=== PATIENT | male | born 1955 | race Caucasian/White ===

== ENCOUNTER → 2018-06-10 11:28 | Outpatient (REF) | payer BC, SELFPAY ==
[2018-06-10 12:37] LABS: Hemoglobin A1C 6.2 % (4.5-6.2)
[2018-06-10 15:55] LABS: ALT 36 U/L (12-78); AST 22 U/L (15-37); HDL Cholesterol 36 mg/dL (40-60); LDL CHOLESTEROL 76 mg/dL (<100)
[2018-06-10 16:09] LABS: Creatine Kinase 144 U/L (39-308)
== END ==
LOC: NCHCN 11:28
PROVIDERS: PCP Nurse Practitioner Family; Visit Provider Nurse Practitioner Family
DX: M25.562 Pain in left knee (principal); E78.5 Hyperlipidemia, unspecified; I10 Essential (primary) hypertension
CPT/HCPCS: 82550; 83721; 83036; 83718; 84450; 84460

== ENCOUNTER 2018-07-18 09:00 | Outpatient (CLI) | payer BC, SELFPAY ==
--- NOTE | 2018-07-18 09:16 | DI.RAD_ITS ---
SYMPTOMS/DIAGNOSIS: LT KNEE PAIN, PRE TKA LEG LEG EXAMINATION: In the right knee there is moderate joint space narrowing and mild periarticular spurring in the medial femoral tibial joint space. In the left knee there is moderately severe joint space narrowing and moderate periarticular spurring in the medial femoral tibial joint. The hips and ankles appear well maintained. The right lower extremity measures 87.2 cm. The left lower extremity measures 86.1 cm. IMPRESSION: Bilateral osteoarthritis of the knees.
== END 2018-07-18 09:20 ==
PROVIDERS: PCP Nurse Practitioner Family; Visit Provider Student in an Organized Health Care Education/Training Program
DX: M25.562 Pain in left knee (principal); M17.0 Bilateral primary osteoarthritis of knee
CPT/HCPCS: 77073

== ENCOUNTER 2018-08-31 13:55 | Outpatient (CLI) | payer BC, SELFPAY ==
--- NOTE | 2018-08-31 14:30 | W.PREOPHP ---
Date of service: 08/31/18 Assessment and Plan (1) Left knee DJD: Current visit: No Status: Chronic Pending cardiac clearance, Efrain will proceed with a left total knee replacement. Because of dyspnea on exertion, associated with angina, Efrain is referred back to his garage door technician on 09/02/2018 for cardiac clearance of surgery on 09/06/2018. Details of surgery were discussed with patient, as well as risks, and pertinent anatomy. All questions were answered. History of Present Illness Chief Complaint: LEFT knee pain Narrative: Efrain is a 63-year-old male complaining of left knee pain. He states that this knee pain has been bothering him for 10 or 15 years. He has been pushing through this knee pain for quite some time, however now it is starting in the way of his daily life. He states that while he is working he is okay at the beginning of the day, however after his first break, getting up from seated position and the rest of the day he has space significant left knee pain. Most of his pain is start up pain, however if he is on his feet for a long rate of time he has been significant pain at the end of the day. He also has significant pain going down stairs. He has had x-rays done which show complete loss of joint space in the medial compartment. There is also bone spurring throughout the medial compartment and patellofemoral compartment. He does have a valgus deformity on x-ray. He has had an injection, which did help his knee pain however it was short-lived relief. At this point he is looking for more permanent treatment option for his left knee pain, and Dr. Hernandez does suggest a left total knee replacement. Efrain is anxious to proceed with a left total knee replacement. Pertinent Surgical Information Efrain has an extensive cardiac history. Back in 2004, he had an VT which led to a stent placement. He was doing okay until about 2 years ago, we went in to have a hemicolectomy for colon cancer, he subsequently had another VT. After an attempted stent placement, he ended up having a triple bypass. Since then he continues to have some chest pain and shortness of breath if he overdoes it, however he states that if he rests when this happens the pain and shortness of breath goes away. He has been seeing a garage door technician, but has not seen him with the intention of having a total knee replacement. He does have a history of colon cancer, with hemicolectomy. Patient denies history of hypertension, CVA, asthma, COPD, renal or liver disorders, hepatitis, bleeding disorders, diabetes, immune or thyroid disorders. No complications from anesthesia. Review of Systems Constitutional Denies fever(s) ENT Denies dizziness and Denies sore throat Cardiovascular Reports chest pain with activity, Denies palpitations and Denies dyspnea Respiratory Denies dyspnea Gastrointestinal Denies abdominal pain, Denies melena, Denies hematochezia, Denies diarrhea, Denies nausea and Denies vomiting Genitourinary Denies hematuria and Denies dysuria Neurologic Denies dizziness Endocrine Denies palpitations PFSH Medical History Diabetes mellitus (Chronic) Sleep apnea with use of continuous positive airway pressure (CPAP) (Chronic) Colon cancer (Chronic) Myocardial infarction (Chronic) Umbilical hernia (Acute) Social History Smoking/Tobacco Use Status: Never alcohol intake: former substance use type: does not use Surgical History History of hemicolectomy (Chronic) History of coronary artery bypass graft x 3 (Chronic) History of heart artery stent (Chronic) History of colostomy reversal (Acute) Meds Home Medications Medication Instructions Recorded Confirmed Type ascorbic acid (vitamin C) [Vitamin 1,000 mg PO DAILY 06/22/14 08/31/18 History C] aspirin [Aspir-81] 81 mg PO DAILY 06/22/14 08/31/18 History mv,Ca,Fe,[id number]-caff [One 1 tab PO DAILY 06/22/14 08/31/18 History Daily Tablet] omeprazole magnesium [Prilosec Otc] 20 mg PO DAILY 06/22/14 08/31/18 History trazodone 100 mg PO HS 06/22/14 08/31/18 History acetaminophen [Acetaminophen Extra 1,000 mg PO Q4H PRN tab-cap 03/14/18 08/31/18 History Strength] atorvastatin 80 mg PO HS tab-cap 03/14/18 08/31/18 History cetirizine [Zyrtec] 10 mg PO PRN PRN 03/14/18 08/31/18 History fluticasone [Flonase Allergy 9.9 ml NS PRN PRN 03/14/18 08/31/18 History Relief] furosemide 20 mg PO DAILY tab-cap 03/14/18 08/31/18 History lisinopril 80 mg PO DAILY tab-cap 03/14/18 08/31/18 History metoprolol tartrate 50 mg PO TID tab 03/14/18 08/31/18 History nitroglycerin 0.4 mg SUBLINGUAL . DIRECTED PRN 03/14/18 08/31/18 History loperamide [Anti-Diarrhea] 2 mg PO DAILY 08/31/18 08/31/18 History psyllium husk [Metamucil] 1 tbsp PO HS 08/31/18 08/31/18 History Allergies Allergy/AdvReac Type Severity Reaction Status Date / Time salmon oil Allergy Severe anaphylaxis Uncoded 08/31/18 14:13 Exam HENMT Head: normocephalic and atraumatic General nose exam: no nasal discharge Throat: uvula midline and no uvular edema Other: soft palate rises symmetrically, no erythema Eyes Conjunctivae: conjunctivae normal Sclera: sclerae normal Pupils: PERRL Resp Effort & Inspection: normal respiratory effort Auscultation: clear to auscultation bilaterally and no wheezes Cardio Rate: regular rate Rhythm: regular rhythm Heart Sounds: S1 normal, S2 normal and no murmurs
--- NOTE | 2018-08-31 14:38 | HPE_ITS ---
Date of service: 08/31/18 Assessment and Plan (1) Left knee DJD: Current visit: No Status: Chronic Pending cardiac clearance, Efrain will proceed with a left total knee replacement. Because of dyspnea on exertion, associated with angina, Efrain is referred back to his import/export freight forwarder on 09/02/2018 for cardiac clearance of surgery on 09/06/2018. Details of surgery were discussed with patient, as well as risks, and pertinent anatomy. All questions were answered. History of Present Illness Chief Complaint: LEFT knee pain Narrative: Efrain is a 63-year-old male complaining of left knee pain. He states that this knee pain has been bothering him for 10 or 15 years. He has been pushing through this knee pain for quite some time, however now it is starting in the way of his daily life. He states that while he is working he is okay at the beginning of the day, however after his first break, getting up from seated position and the rest of the day he has space significant left knee pain. Most of his pain is start up pain, however if he is on his feet for a long rate of time he has been significant pain at the end of the day. He also has significant pain going down stairs. He has had x-rays done which show complete loss of joint space in the medial compartment. There is also bone spurring throughout the medial compartment and patellofemoral compartment. He does have a valgus deformity on x-ray. He has had an injection, which did help his knee pain however it was short-lived relief. At this point he is looking for more permanent treatment option for his left knee pain, and Dr. Hernandez does suggest a left total knee replacement. Efrain is anxious to proceed with a left total knee replacement. Pertinent Surgical Information Efrain has an extensive cardiac history. Back in 2004, he had an OH which led to a stent placement. He was doing okay until about 2 years ago, we went in to have a hemicolectomy for colon cancer, he subsequently had another OH. After an attempted stent placement, he ended up having a triple bypass. Since then he continues to have some chest pain and shortness of breath if he overdoes it , however he states that if he rests when this happens the pain and shortness of breath goes away. He has been seeing a import/export freight forwarder, but has not seen him with the intention of having a total knee replacement. He does have a history of colon cancer, with hemicolectomy. Patient denies history of hypertension, CVA, asthma, COPD, renal or liver disorders, hepatitis, bleeding disorders, diabetes, immune or thyroid disorders. No complications from anesthesia. Review of Systems Constitutional Denies fever(s) ENT Denies dizziness and Denies sore throat Cardiovascular Reports chest pain with activity, Denies palpitations and Denies dyspnea Respiratory Denies dyspnea Gastrointestinal Denies abdominal pain, Denies melena, Denies hematochezia, Denies diarrhea, Denies nausea and Denies vomiting Genitourinary Denies hematuria and Denies dysuria Neurologic Denies dizziness Endocrine Denies palpitations PFSH Medical History Diabetes mellitus (Chronic) Sleep apnea with use of continuous positive airway pressure (CPAP) (Chronic) Colon cancer (Chronic) Myocardial infarction (Chronic) Umbilical hernia (Acute) Social History Smoking/Tobacco Use Status: Never alcohol intake: former substance use type: does not use Surgical History History of hemicolectomy (Chronic) History of coronary artery bypass graft x 3 (Chronic) History of heart artery stent (Chronic) History of colostomy reversal (Acute) Meds Home Medications Medication Instructions Recorded Confirmed Type ascorbic acid (vitamin C) [Vitamin 1,000 mg PO DAILY 06/22/14 08/31/18 History C] aspirin [Aspir-81] 81 mg PO DAILY 06/22/14 08/31/18 History mv,Ca,Fe,[id number]-[id number]-caff [One 1 tab PO DAILY 06/22/14 08/31/18 History Daily Tablet] omeprazole magnesium [Prilosec Otc] 20 mg PO DAILY 06/22/14 08/31/18 History trazodone 100 mg PO HS 06/22/14 08/31/18 History acetaminophen [Acetaminophen Extra 1,000 mg PO Q4H PRN tab-cap 03/14/18 History Strength] atorvastatin 80 mg PO HS tab-cap 03/14/18 08/31/18 History cetirizine [Zyrtec] 10 mg PO PRN PRN 03/14/18 08/31/18 History fluticasone [Flonase Allergy 9.9 ml NS PRN PRN 03/14/18 08/31/18 History Relief] furosemide 20 mg PO DAILY tab-cap 03/14/18 08/31/18 History lisinopril 80 mg PO DAILY tab-cap 03/14/18 08/31/18 History metoprolol tartrate 50 mg PO TID tab 03/14/18 08/31/18 History nitroglycerin 0.4 mg SUBLINGUAL . DIRECTED PRN 03/14/18 08/31/18 History loperamide [Anti-Diarrhea] 2 mg PO DAILY 08/31/18 08/31/18 History psyllium husk [Metamucil] 1 tbsp PO HS 08/31/18 08/31/18 History Allergies Allergy/AdvReac Type Severity Reaction Status Date / Time salmon oil Allergy Severe anaphylaxis Uncoded 08/31/18 14:13 Exam HENMT Head: normocephalic and atraumatic General nose exam: no nasal discharge Throat: uvula midline and no uvular edema Other: soft palate rises symmetrically, no erythema Eyes Conjunctivae: conjunctivae normal Sclera: sclerae normal Pupils: PERRL Resp Effort & Inspection: normal respiratory effort Auscultation: clear to auscultation bilaterally and no wheezes Cardio Rate: regular rate Rhythm: regular rhythm Heart Sounds: S1 normal, S2 normal and no murmurs
[2018-08-31 16:27] LABS: HCT 38.9 % (40.0-50.0); HGB 13.2 g/dL (13.5-17.5); Mean Corp. HGB Concentration 33.9 g/dL (32.0-36.0); Mean Corpuscular Hemoglobin 29.1 pg (27.0-33.0); Mean Corpuscular Volume 85.7 fL (80-95); Mean Platelet Volume 10.1 fL (8.0-11.0); Platelet Count 212 x1000/uL (130-400); RBC 4.54 m/cumm (4.50-6.00); RBC Distribution Width 12.2 % (11.8-14.1); White Blood Cell Count 6.12 k/cumm (4.4-10.8)
[2018-08-31 16:56] LABS: Anion Gap 7.8 mmol/L (3-11); BUN 19 mg/dL (7-18); CO2 30.2 mmol/L (21.0-32.0); CREATININE 1.04 mg/dL (0.70-1.30); Calcium 8.1 mg/dL (8.5-10.1); Chloride 104 mmol/L (98-107); Glucose 123 mg/dL (70-100); Potassium 3.6 mmol/L (3.5-5.1); Sodium 142 mmol/L (136-145)
== END 2018-08-31 14:15 ==
PROVIDERS: PCP Nurse Practitioner Family; Visit Provider Student in an Organized Health Care Education/Training Program
DX: M25.562 Pain in left knee (principal); M17.12 Unilateral primary osteoarthritis, left knee; I25.10 Atherosclerotic heart disease of native coronary artery without angina pectoris; I10 Essential (primary) hypertension; Z01.818 Encounter for other preprocedural examination
CPT/HCPCS: 36415; 80048; 85027; NC; 83036; 93005; 93010

== ENCOUNTER 2018-09-06 06:00 | Inpatient (IN) | payer BC, SELFPAY ==
[2018-08-31 14:22] VITALS: BP 155/75; PULSE 50; RESP 17; TEMP 37.1; O2SAT 97
--- NOTE | 2018-08-31 15:27 | PDOC.CMPRO ---
- If Service Date Differs Date of service: 08/31/18 Time of Service: 15:27 Care Management Progress Note CM met with Efrain per request of day surgery. Efrain will have a TKA with Dr. Hernandez on 09/06/18. He resides in [place] with his , Renée, and her elderly father who suffers from 'dementia/Alzheimer's' per Renée. Efrain works for the [employer]. He is independent with his ADLs and transportation. Efrain will be needing a FWW at discharge and has elected to receive one through [employer]- (Renée does not want to use [employer]). Efrain has 13 steps up to his home. Renée has asked if she can stay overnight with Efrain during his recovery. CM advised that while this was not encouraged, it was likely that she could be accommodated. Per Renée, she has health issues and [place] is a long drive from [facility]. CM will offer support to Efrain, family, and care team when Efrain arrives on the MS floor.
--- NOTE | 2018-08-31 15:33 | CMPROGNOTE_ITS ---
- If Service Date Differs Date of service: 08/31/18 Time of Service: 15:27 Care Management Progress Note CM met with Efrain per request of day surgery. fErain will have a TKA with Dr. Hernandez on 09/06/18. He resides in [place] with his , Renée, and her elderly father who suffers from 'dementia/Alzheimer's' per Renée. Efrain works for the [employer] [place]. He is independent with his ADLs and transportation. Efrain will be needing a FWW at discharge and has elected to receive one through [employer]- (Renée does not want to use [employer]). Efrain has 13 steps up to his home. Renée has asked if she can stay overnight with Efrain during his recovery. CM advised that while this was not encouraged, it was likely that she could be accommodated. Per Renée, she has health issues and [place] is a long drive from [facility]. CM will offer support to Efrain, family, and care team when Efrain arrives on the MS floor.
[2018-09-06] VITALS (12 sets, daily range): BP systolic 117–163; BP diastolic 56–93; PULSE 50–72; RESP 14–92; TEMP 36–37.4; O2SAT 93–98
[2018-09-06] MEDS: Celecoxib 200 MG CAP 400 MG PO (06:48)
[2018-09-06] MEDS: Acetaminophen 500 MG TAB 1000 MG PO ×3 (06:49→19:36)
[2018-09-06] MEDS: oxyCODONE-CR 10 MG TABCR PO (06:49)
[2018-09-06] MEDS: Gabapentin 300 MG CAP PO ×2 (06:49→21:14)
[2018-09-06] MEDS: Lactated Ringers 1,000 ML 80 ML IV ×2 (07:06→12:22)
[2018-09-06] MEDS: Bupivacaine LIPOSOME/PF 133 MG/10 ML VIAL IJ ×2 (07:45→09:47)
[2018-09-06] MEDS: Bupivacaine 0.25% Pres-Free 10 ML VIAL (07:45)
[2018-09-06] MEDS: Lidocaine 2% Viscous 15 ML CUP 3 ML PO (09:00)
[2018-09-06] MEDS: Ketorolac 30 MG/ML VIAL (09:47)
[2018-09-06] MEDS: Bupivacaine 0.25% Pres-Free 30 ML VIAL (09:47)
--- NOTE | 2018-09-06 14:03 | PT.INIE ---
Date of service: 09/06/18 Time of Service: 14:03 PT Notes Inpatient Physical Therapy Evaluation Date: 09/06/18 Referring Doctor: Mk Hernandez PT Orders: PT CONSULT: s/p L TKA Precautions: WBAT L LE Patient Profile/Admitting Diagnosis: Pt is a 63yr old female s/p left total knee arthroplasty by Dr. Hernandez 09/06/18 PMHX: obesity, left knee degenerative joint disease, myocardial infarction, coronary artery bypass graft x3, stent placement, colon cancer, hemicolectomy with colostomy reversal, diabetes mellitus, sleep apnea uses CPAP, umbilical hernia Social History/Home Situation: Lives with in a house, 1 step to enter, 13 steps with railing to upstairs bedrooms. Baseline mobility independent gait with no device, independent with ADLS Equipment Owned/DME: crutches, will need FWW Subjective: Pt lying in bed watching TV with , alert and agreable to PT Consult. Objective: General Observation: IV L UE, cryocuff left knee, raya catheter, james wrap L LE Mental Status: A& O x3 Pain: no c/o pain Bed Mobility/Transfers: Supine-sit: HOB 35degrees, independent Sit-stand: SBA with FWW Stand-sit: SBA Sit-supine: HOB Flat, independent Gait: SBA with FWW 70ftx2, step through gait pattern with decreased stride and odell. Pt returned to bed once gait completed. Cryocuff applied post session Therex: Pt has issued pre-op TKA therex program, initiated ankle pumps, quad sets, glute sets x 20 reps, seated LAQ x 10 reps Balance: Static Sitting: normal Dynamic Sitting: normal Static Standing: fair Dynamic Standing: fair Special Tests: Mobility Limitations Standardized Measure [facility] AM-PAC 6 clicks Basic Mobility Inpatient Short Form: Raw Score: 18 Standardized Score: 43.63 CMS Score: 46.58% [facility] Modifier: CK Informed Consent/Education: Patient instructed in purpose of PT consult and plan of care. Assessment: Pt is a 63yr old female s/p left total knee arthroplasty by Dr. Hernandez 09/06/18 in setting of obesity, left knee degenerative joint disease, myocardial infarction, coronary artery bypass graft x3, stent placement.Patient presents with the following impairment level findings: decreased ROM L knee, decreased strength left quad, decreased strength with transfers and gait mobility requiring FWW for gait stability post operatively. Pt will require FWW for gait in home setting at discharge. Impairments are contributing to the following functional limitations: AMPAC score CMS Score: 46.58% Patient is assessed as a Low 39364 complexity based on the following: History: see above Examination: see above Presentation: stable Decision Making: AMPAC score CMS Score: 46.58% Goals: Goals X1 week 1. Supine-Sit : independent 2. Sit-Supine : independent 3. Sit-Stand : supervision 4. Stand-Sit : supervision 5. Bed-Chair : supervision with FWW 6. Chair-Bed : supervision with FWW 7. Gait : supervision 150ft WBAT L LE 8. Stairs SBA up/down 13 steps with railing, WBAT L LE 9. Independent with home exercise program Plan of Care/Treatment Plan: 1-2x/day, 7 days/week x 1 week. Plan of care has been reviewed with the STAVE BOLT EQUALIZER providing the service under Physical Therapy direction. Initiate Physical Therapy intervention for strengthening, bed mobility, transfers, gait, stairs, balance training, use of assistive device. DISCHARGE RECOMMENDATIONS: home, will need FWW TREATMENT CODE/TIME: 25 min IE 1402 G Codes in the area mobility of walking and moving around: current status [id number] CK; projected status GP [id number]. Discharge status (if discharging) GP [id number] CK based on AMPAC score CMS Score: 46.58% Karon Marinelli PT
--- NOTE | 2018-09-06 14:16 | IN_ITS ---
Date of service: 09/06/18 Time of Service: 14:03 PT Notes Inpatient Physical Therapy Evaluation Date: 09/06/18 Referring Doctor: Mk Hernandez PT Orders: PT CONSULT: s/p L TKA Precautions: WBAT L LE Patient Profile/Admitting Diagnosis: Pt is a 63yr old female s/p left total knee arthroplasty by Dr. Hernandez 09/06/18 PMHX: obesity, left knee degenerative joint disease, myocardial infarction, coronary artery bypass graft x3, stent placement, colon cancer, hemicolectomy with colostomy reversal, diabetes mellitus, sleep apnea uses CPAP, umbilical hernia Social History/Home Situation: Lives with in a house, 1 step to enter, 13 steps with railing to upstairs bedrooms. Baseline mobility independent gait with no device, independent with ADLS Equipment Owned/DME: crutches, will need FWW Subjective: Pt lying in bed watching TV with , alert and agreable to PT Consult. Objective: General Observation: IV L UE, cryocuff left knee, raya catheter, james wrap L LE Mental Status: A& O x3 Pain: no c/o pain Bed Mobility/Transfers: Supine-sit: HOB 35degrees, independent Sit-stand: SBA with FWW Stand-sit: SBA Sit-supine: HOB Flat, independent Gait: SBA with FWW 70ftx2, step through gait pattern with decreased stride and odell. Pt returned to bed once gait completed. Cryocuff applied post session Therex: Pt has issued pre-op TKA therex program, initiated ankle pumps, quad sets, glute sets x 20 reps, seated LAQ x 10 reps Balance: Static Sitting: normal Dynamic Sitting: normal Static Standing: fair Dynamic Standing: fair Special Tests: Mobility Limitations Standardized Measure [facility] AM-PAC 6 clicks Basic Mobility Inpatient Short Form: Raw Score: 18 Standardized Score: 43.63 CMS Score: 46.58% [facility] Modifier: CK Informed Consent/Education: Patient instructed in purpose of PT consult and plan of care. Assessment: Pt is a 63yr old female s/p left total knee arthroplasty by Dr. Hernandez 09/06/18 in setting of obesity, left knee degenerative joint disease, myocardial infarction, coronary artery bypass graft x3, stent placement.Patient presents with the following impairment level findings: decreased ROM L knee, decreased strength left quad, decreased strength with transfers and gait mobility requiring FWW for gait stability post operatively. Pt will require FWW for gait in home setting at discharge. Impairments are contributing to the following functional limitations: AMPAC score CMS Score: 46.58% Patient is assessed as a Low 94178 complexity based on the following: History: see above Examination: see above Presentation: stable Decision Making: AMPAC score CMS Score: 46.58% Goals: Goals X1 week 1. Supine-Sit : independent 2. Sit-Supine : independent 3. Sit-Stand : supervision 4. Stand-Sit : supervision 5. Bed-Chair : supervision with FWW 6. Chair-Bed : supervision with FWW 7. Gait : supervision 150ft WBAT L LE 8. Stairs SBA up/down 13 steps with railing, WBAT L LE 9. Independent with home exercise program Plan of Care/Treatment Plan: 1-2x/day, 7 days/week x 1 week. Plan of care has been reviewed with the PILOT BOAT CAPTAIN providing the service under Physical Therapy direction. Initiate Physical Therapy intervention for strengthening, bed mobility, transfers, gait, stairs, balance training, use of assistive device. DISCHARGE RECOMMENDATIONS: home, will need FWW TREATMENT CODE/TIME: 25 min IE 1402 G Codes in the area mobility of walking and moving around: current status [id number] CK; projected status GP [id number]. Discharge status (if discharging) GP [id number] CK based on AMPAC score CMS Score: 46.58% Karon Marinelli PT
--- NOTE | 2018-09-06 18:05 | HOME_ITS ---
Home Ventilator Equipment Home care company [employer] Reason: Obstructive Sleep Apnea Make: Respironics Model: REMStar Mask type: Face mask Mask size: Medium Mode: CPAP Settings: Max/Min 18/8 Oxygen bleed in (lpm): 0 Condition: Fair Date last checked: 09/06/18 Year of last sleep study: Compliance Daily Comments:
[2018-09-06] MEDS: Celecoxib 100 MG CAP 200 MG PO (19:36)
[2018-09-06] MEDS: Atorvastatin 40 MG TAB 80 MG PO (19:36)
[2018-09-06] MEDS: Aspirin E.C. 81 MG TABEC PO (19:36)
[2018-09-06] MEDS: Normal Saline 500 ML 200 ML IV (21:15)
[2018-09-06] MEDS: traZODone 100 MG TAB PO (22:04)
[2018-09-07 04:10] VITALS: BP 124/72; PULSE 66; RESP 18; TEMP 36.7; O2SAT 96
[2018-09-07] MEDS: Normal Saline Flush 10 ML SYR IV (05:48)
[2018-09-07] MEDS: oxyCODONE 5 MG TAB PO ×2 (06:03→10:50)
[2018-09-07] MEDS: Aspirin E.C. 81 MG TABEC PO (07:36)
[2018-09-07] MEDS: Celecoxib 100 MG CAP 200 MG PO (07:36)
[2018-09-07] MEDS: Omeprazole 20 MG CAPCR PO (07:36)
[2018-09-07] MEDS: Acetaminophen 500 MG TAB 1000 MG PO (07:36)
[2018-09-07] MEDS: Lisinopril 20 MG TAB 40 MG PO (07:36)
[2018-09-07] MEDS: Multivitamin w/Minerals TAB 1 TAB PO (07:36)
[2018-09-07] MEDS: Metoprolol 25 MG TAB 50 MG PO (07:37)
[2018-09-07] MEDS: Furosemide 20 MG TAB PO (07:37)
[2018-09-07] MEDS: Ascorbic Acid 500 MG TAB 1000 MG PO (07:37)
--- NOTE | 2018-09-07 07:42 | PDOC.CMIN ---
- If Service Date Differs Date of service: 09/07/18 Time of Service: 07:42 Care Management Initial Assess REASON FOR HOSPITALIZATION:: Left Knee DJD. PAST MEDICAL HISTORY/PAST SURGICAL HISTORY:: Colon cancer, diabetes, [place], sleep apnea, umbilical hernia. Surgical hx: colostomy reversal, CABG x3, heart artery stent, hemicolectomy. PREVIOUS FUNCTIONAL STATUS/SOCIAL/FAMILY SUPPORTS:: Efrain resides in [place] with his , Renée, and her elderly father who suffers from 'dementia/Alzheimer's' per Renée. Efrain works for the [employer]. He is independent with his ADLs and transportation. There are 13 steps up to Efrain's house and he will be needing a FWW at discharge. CURRENT FUNCTIONAL STATUS:: Efrain is sitting in his chair with his , Renée, at bedside when CM visits this morning. He is engaged in conversation, makes good eye contact, and is talkative. Efrain reports that he has seen the MD and is discharging shortly. He reports that his pain is well controlled and his raya was removed yesterday afternoon and he is having no difficulty voiding. Efrain has worked with PT and will be going home with a FWW through [employer]. JUAN CARLOS Healy will be reviewing discharge paperwork with Efrain and Renée and administering a flu vaccination prior to discharge per patient request. ADVANCE DIRECTIVES:: None on file at [facility]. Has patient been provided with information about the portal?: Yes Did the patient sign up for the portal?: No CODE STATUS:: Full Code INSURANCE COVERAGE / FINANCIAL ISSUES:: [facility]. CURRENT HOME/COMMUNITY SERVICES/EQUIPMENT:: No current home or community services. No equipment. Efrain will be needing a FWW at discharge; patient would like to utilize [employer]. PRIMARY CARE PHYSICIAN:: Darlene Chang. POTENTIAL DISCHARGE NEEDS:: Follow up appointment with surgical services. Outpatient PT in 2 weeks. PATIENT/FAMILY EDUCATION NEEDS:: Discharge education, any limitations, and follow up plan of care. Ask Me Three discussion. ANTICIPATED BARRIERS TO DISCHARGE:: No anticipated barriers to discharge. TRANSPORTATION:: Efrain will transport via private vehicle with his , Renée. PLAN:: Efrain will discharge when medically ready per MD. Anticipate patient will discharge with no services and follow up with surgical services and possible outpatient PT. CM will continue to offer support to patient, family, and care team regarding discharge planning and disposition.
[2018-09-07 07:45] VITALS: BP 167/78; PULSE 61; RESP 18; TEMP 36.9; O2SAT 96
--- NOTE | 2018-09-07 07:49 | INITIAL_ITS ---
- If Service Date Differs Date of service: 09/07/18 Time of Service: 07:42 Care Management Initial Assess REASON FOR HOSPITALIZATION:: Left Knee DJD. PAST MEDICAL HISTORY/PAST SURGICAL HISTORY:: Colon cancer, diabetes, [place], sleep apnea, umbilical hernia. Surgical hx: colostomy reversal, CABG x3, heart artery stent, hemicolectomy. PREVIOUS FUNCTIONAL STATUS/SOCIAL/FAMILY SUPPORTS:: Efrain resides in [place] with his , Renée, and her elderly father who suffers from 'dementia/Alzheimer 's' per Renée. Efrain works for the [employer]. He is independent with his ADLs and transportation. There are 13 steps up to Efrain's house and he will be needing a FWW at discharge. CURRENT FUNCTIONAL STATUS:: Efrain is sitting in his chair with his , Renée, at bedside when CM visits this morning. He is engaged in conversation, makes good eye contact, and is talkative. Efrain reports that he has seen the MD and is discharging shortly. He reports that his pain is well controlled and his raya was removed yesterday afternoon and he is having no difficulty voiding. Efrain has worked with PT and will be going home with a FWW through [facility]. JUAN CARLOS Healy will be reviewing discharge paperwork with Efrain and Renée and administering a flu vaccination prior to discharge per patient request. ADVANCE DIRECTIVES:: None on file at [facility]. Has patient been provided with information about the portal?: Yes Did the patient sign up for the portal?: No CODE STATUS:: Full Code INSURANCE COVERAGE / FINANCIAL ISSUES:: [facility]. CURRENT HOME/COMMUNITY SERVICES/EQUIPMENT:: No current home or community services. No equipment. Efrain will be needing a FWW at discharge; patient would like to utilize [facility]. PRIMARY CARE PHYSICIAN:: Darlene Chang. POTENTIAL DISCHARGE NEEDS:: Follow up appointment with surgical services. Outpatient PT in 2 weeks. PATIENT/FAMILY EDUCATION NEEDS:: Discharge education, any limitations, and follow up plan of care. Ask Me Three discussion. ANTICIPATED BARRIERS TO DISCHARGE:: No anticipated barriers to discharge. TRANSPORTATION:: Efrain will transport via private vehicle with his , Renée. PLAN:: Efrain will discharge when medically ready per MD. Anticipate patient will discharge with no services and follow up with surgical services and possible outpatient PT. CM will continue to offer support to patient, family, and care team regarding discharge planning and disposition.
--- NOTE | 2018-09-07 08:17 | PT.INTREAT ---
Date of service: 09/07/18 Time of Service: 08:17 PT Notes Inpatient Physical Therapy Treatment Note Date: 09/07/18 PRECAUTIONS: WBAT on L SUBJECTIVE: Efrain states that he has had knee pain consistently at about a 3/10. He would like to go home today. OBJECTIVE: PAIN: See subjective portion above BED MOBILITY/TRANSFERS Supine-sit: I with HOB flat Sit-stand: S Stand-sit: S GAIT Assistive Device: FWW Weight bearing: WBAT on L Assist: S Distance: 200' THEREX: Patient completed a lower extremity strengthening and stabilization program, as per flow sheet. Patient was able to tolerate a progression in his program today. STAIRS: Up/down 9x4 and 6x6 using 1 rail/SPC and a step-to pattern with supervision. ASSESSMENT: Patient tolerated session without complaint. He was able to tolerate a progression in his gait distance with FWW support. He was also able to progress his ther ex program, as per flow sheet. PLAN: As per primary PT TREATMENT CODE/TIME: 30 minutes; TA/TP
--- NOTE | 2018-09-07 08:24 | PTTR_ITS ---
Date of service: 09/07/18 Time of Service: 08:17 PT Notes Inpatient Physical Therapy Treatment Note Date: 09/07/18 PRECAUTIONS: WBAT on L SUBJECTIVE: Efrain states that he has had knee pain consistently at about a 3/ 10. He would like to go home today. OBJECTIVE: PAIN: See subjective portion above BED MOBILITY/TRANSFERS Supine-sit: I with HOB flat Sit-stand: S Stand-sit: S GAIT Assistive Device: FWW Weight bearing: WBAT on L Assist: S Distance: 200' THEREX: Patient completed a lower extremity strengthening and stabilization program, as per flow sheet. Patient was able to tolerate a progression in his program today. STAIRS: Up/down 9x4 and 6x6 using 1 rail/SPC and a step-to pattern with supervision. ASSESSMENT: Patient tolerated session without complaint. He was able to tolerate a progression in his gait distance with FWW support. He was also able to progress his ther ex program, as per flow sheet. PLAN: As per primary PT TREATMENT CODE/TIME: 30 minutes; TA/TP
--- NOTE | 2018-09-07 08:37 | PT.INDS ---
Date of service: 09/07/18 Time of Service: 08:37 PT Notes Inpatient Physical Therapy Discharge Summary Date: 09/07/18 Dates of Service: 09/06/18-09/07/18 SUBJECTIVE: NT OBJECTIVE: 09/06/18-09/07/18 Bed Mobility/Transfers: Supine-sit: independent Sit-stand: supervision with FWW Stand-sit: supervision Sit-supine: independent Gait: supervision with FWW 200ft Stairs: up/down 10 steps with railing and cane supervision Balance: Static Sitting: normal Dynamic Sitting: normal Static Standing: fair Dynamic Standing: fair Assessment: Pt is a 63yr old female s/p left total knee arthroplasty by Dr. eHrnandez 09/06/18 in setting of obesity, left knee degenerative joint disease, myocardial infarction, coronary artery bypass graft x3, stent placement. Patient was seen for 2 PT visits. Progressed from SBA standing transfers to supervision, from SBA gait with FWW 70ft x2 to supervision gait with FWW 200ft. Pt is being discharged to home today. Goals: Goals X1 week 1. Supine-Sit : independent 2. Sit-Supine : independent 3. Sit-Stand : supervision 4. Stand-Sit : supervision 5. Bed-Chair : supervision with FWW 6. Chair-Bed : supervision with FWW 7. Gait : supervision 150ft WBAT L LE 8. Stairs SBA up/down 13 steps with railing, WBAT L LE 9. Independent with home exercise program Pt met goals # 1-9 DISCHARGE RECOMMENDATIONS: home, will need FWW G Codes in the area mobility of walking and moving around; projected status GP [id number]. Discharge status (if discharging) GP [id number] LUCAS Marinelli PT
--- NOTE | 2018-09-07 08:41 | INDS_ITS ---
Date of service: 09/07/18 Time of Service: 08:37 PT Notes Inpatient Physical Therapy Discharge Summary Date: 09/07/18 Dates of Service: 09/06/18-09/07/18 SUBJECTIVE: NT OBJECTIVE: 09/06/18-09/07/18 Bed Mobility/Transfers: Supine-sit: independent Sit-stand: supervision with FWW Stand-sit: supervision Sit-supine: independent Gait: supervision with FWW 200ft Stairs: up/down 10 steps with railing and cane supervision Balance: Static Sitting: normal Dynamic Sitting: normal Static Standing: fair Dynamic Standing: fair Assessment: Pt is a 63yr old female s/p left total knee arthroplasty by Dr. Hernandez 09/06/18 in setting of obesity, left knee degenerative joint disease, myocardial infarction, coronary artery bypass graft x3, stent placement. Patient was seen for 2 PT visits. Progressed from SBA standing transfers to supervision, from SBA gait with FWW 70ft x2 to supervision gait with FWW 200ft. Pt is being discharged to home today. Goals: Goals X1 week 1. Supine-Sit : independent 2. Sit-Supine : independent 3. Sit-Stand : supervision 4. Stand-Sit : supervision 5. Bed-Chair : supervision with FWW 6. Chair-Bed : supervision with FWW 7. Gait : supervision 150ft WBAT L LE 8. Stairs SBA up/down 13 steps with railing, WBAT L LE 9. Independent with home exercise program Pt met goals # 1-9 DISCHARGE RECOMMENDATIONS: home, will need FWW G Codes in the area mobility of walking and moving around; projected status GP [id number]. Discharge status (if discharging) GP [id number] LUCAS Marinelli PT
--- NOTE | 2018-09-07 09:30 | DSE_ITS ---
Date of service: 09/07/18 Time of Service: 09:29 DS: Diagnosis Discharge Diagnosis (1) Left knee DJD: Status: Chronic Discharge Plan Disposition Patient Disposition: HOME Condition: Good Discharge Details Reason For Visit: LEFT KNEE DJD Admit Date/Time: 09/06/18 06:00 Admit Provider: Mk Hernandez Attending Provider: Mk Hernandez Primary Care Provider: Darlene Chang Hospital Course Hospital Course: Patient was admitted to the medical/surgical floor following the procedure. It was tolerated well without any notable medical, surgical, or anesthetic complications. Mobilization began postoperatively. The raya catheter was removed and voiding spontaneously. Vitals were stable. Physical therapy worked with the patient and was cleared for discharge home. No acute medical issues. Home Meds and New Rx's Prescriptions: New aspirin 81 mg Tablet,Delayed Release (Dr/Ec) 81 mg PO BID Qty: 80 RF: 0 acetaminophen [Mapap Extra Strength] 500 mg Tablet 1,000 mg PO TID Qty: 90 RF: 0 polyethylene glycol 3350 17 gram Powder In Packet 17 g PO BID PRN PRN (Reason: Constipation) Qty: 0 RF: 0 gabapentin 300 mg Capsule 300 mg PO HS Qty: 7 RF: 0 oxycodone 5 mg Tablet 5 mg PO Q4H PRN PRN (Reason: Pain) Qty: 16 RF: 0 celecoxib 200 mg capsule 200 mg PO BID PRN (Reason: pain) Qty: 60 RF: 1 Continue lisinopril 40 MG tablet 40 mg PO DAILY RF: 0 atorvastatin 80 MG tablet 80 mg PO HS RF: 0 nitroglycerin 0.4 MG tablet, sublingual 0.4 mg Sublingual . DIRECTED PRNRF: 0 furosemide 20 MG tablet 20 mg PO DAILY RF: 0 fluticasone [Flonase Allergy Relief] 9.9 ML spray,suspension 9.9 ml NS PRN PRNRF: 0 metoprolol tartrate 25 MG tablet 50 mg PO TID RF: 0 cetirizine [Zyrtec] 10 MG capsule 10 mg PO PRN PRNRF: 0 ascorbic acid (vitamin C) [Vitamin C] 1,000 MG tablet extended release 1,000 mg PO DAILY RF: 0 aspirin [Aspir-81] 81 MG tablet,delayed release (DR/EC) 81 mg PO DAILY RF: 0 trazodone 100 MG tablet 100 mg PO HS RF: 0 omeprazole magnesium [Prilosec OTC] 20 MG tablet,delayed release (DR/EC) 20 mg PO DAILY RF: 0 mv,Ca,Fe,tir-HA-[id number]-caff [One Daily] 1 EACH tablet 1 tab PO DAILY RF: 0 loperamide [Anti-Diarrhea] 2 mg Tablet 2 mg PO DAILY RF: 0 psyllium husk [Metamucil] 3.4 gram/5.4 gram Powder 1 tbsp PO HS RF: 0 Discontinued acetaminophen [Acetaminophen Extra Strength] 500 MG tablet 1,000 mg PO Q4H PRN RF: 0 Discharge Instructions Additional Instructions: Dr. Hernandez?s Total Knee Discharge Instructions Activity: The most important activity is to walk. You should try to take short walks a few times a day. It is important that when resting you work on keeping the knee straight. Avoid putting a pillow behind the knee as this will encourage flexion. Work on range of motion exercises as provided by Physical Therapy. - Start outpatient physical therapy within 2 weeks. - You should wear the JAGDISH hose on both legs for 4 weeks. Dressing: Keep the surgical dressing in place for at least one week. After the first week it may be removed and replace with light gauze and tape or nothing. It may get wet after 3 days but avoid soaking the dressing. If it gets wet, just lightly pat dry. Medications: - You should take Tylenol and anti-inflammatory (Celebrex) as your primary pain control medications - You have been prescribed a stronger pain medication (Oxycodone) for breakthrough pain, take as needed as prescribed. - You will be taking Aspirin 81mg twice a day for DVT prevention unless instructed otherwise. - If you have constipation you should take Colace or Miralax (both over-the- counter). It takes most people 3-4 days to have a bowel movement. Follow-up: 2 weeks Stand Alone Forms: Nursing Discharge Form Referrals: Mk Hernandez MD [ [facility] STAFF PHYSICIAN] - Activity:: Activity as Tolerated Equipment/Supplies:: Walker Diet:: As Tolerated Discharge Orders Discharge Orders: Discharge Order (Routine); Ordered 09/07/18 Ordered By: Mk Hernandez DS: Data Vitals/I&O Vitals and I&O: Vital Signs Temperature 36.9 C 09/07/18 07:45 Temperature Source Tympanic 09/07/18 07:45 Pulse 61 09/07/18 07:45 Pulse Rhythm Regular 09/07/18 08:43 Respiratory Rate 18 09/07/18 07:45 Respiratory Effort Non-Labored 09/07/18 08:43 Respiratory Depth Normal 09/07/18 08:43 Respiratory Pattern Normal 09/07/18 08:43 Blood Pressure 167/78 H 09/07/18 07:45 Pulse Oximetry 96 09/07/18 07:45 Respiratory End-tidal CO2 42 09/06/18 11:25 Oxygen Delivery Method Room Air 09/07/18 07:45 Oxygen Flow Rate 0 09/07/18 07:45 Pain Level 3 09/07/18 07:45 Comment 09/07/18 04:10 Intake & Output 09/06/18 09/06/18 09/07/18 11:59 23:59 11:59 Intake Total 1170 / 1170 1784.000 / 1784.000 190 / 190 Output Total 325 / 325 400 / 400 700 / 700 Balance 845 / 845 1384.000 / 1384.000 -510 / -510 Weight 113.2 kg Intake: IV 1170 / 1170 704.000 / 704.000 100 / 100 Oral 1080 / 1080 90 / 90 Output: Urine 75 / 75 400 / 400 700 / 700 Estimated Blood Loss 250 / 250 Other: Urine Color Yellow Yellow Yellow Urine Appearance Clear Clear Urine Odor Strong Comment voided large amount in toilet. Emesis Description None Voiding Methods Urinal PFSH Medical History Diabetes mellitus (Chronic) Sleep apnea with use of continuous positive airway pressure (CPAP) (Chronic) Colon cancer (Chronic) Myocardial infarction (Chronic) Umbilical hernia (Acute) Social History Smoking/Tobacco Use Status: Never alcohol intake: former substance use type: does not use Surgical History History of hemicolectomy (Chronic) History of coronary artery bypass graft x 3 (Chronic) History of heart artery stent (Chronic) History of colostomy reversal (Acute)
--- NOTE | 2018-09-07 11:18 | PDOC.CMDIS ---
- If Service Date Differs Date of service: 09/07/18 Time of Service: 11:18 LACE Index Scoring Tool - Questions: Length of Stay (in days): 2 Acuity (Admit via E.D.?): No Comorbidities: Previous M.I., Diabetes w/o Complication, Any Tumor E.D. Visits: 1 - Answers: Total Score: 8 Risk of Readmission: Low Risk Care Management Discharge Reason for Hospitalization: Left Knee DJD. Discharge Plan: Efrain will discharge home when medically ready per MD. Anticipate patient will discharge home with no services, follow up with surgical services and outpatient PT in two weeks. Efrain will transport via private vehicle with his , Renée. Patient/Family Education Needs: Discharge education, any limitations, and follow up plan of care. Ask Me Three discussion.
--- NOTE | 2018-09-19 12:08 | ROE_ITS ---
Date of service: 09/06/18 Time of Service: 12:05 Operative Note DATE OF PROCEDURE: 09/06/18 PRE-OP DIAGNOSIS: Left knee osteoarthritis POST-OP DIAGNOSIS: same PROCEDURE: Left Total Knee Replacement SURGEON: Mk Hernandez DINING ROOM BUSSER: Kelvin La ANESTHESIA: regional and spinal ESTIMATED BLOOD LOSS: 200 PATHOLOGY: none sent COMPLICATIONS: None Patient was transported to: PACU Patient's condition: stable Implants: 1. Depuy Attune Posterior Stabilized Femoral Component, Size 7 2. Depuy Attune Fixed Platform Tibial Component, Siz 5 3. Depuy Attune 7 x 6 mm fixed, Stabilized Poly 4. Depuy Attune Patellar Component, Size 35 mm Indications: I have seen Efrain in clinic for symptoms of left knee arthritis, confirmed with radiographic findings. He has exhausted nonoperative methods and was having significant limitations in daily function and desired better function and less pain. I discussed the technical details of a knee replacement. I explained the risks of the procedure to include, but not limited to, bleeding, infection, pain, stiffness, fracture, damage to nerves and vessels, damage to muscles and tendons, loosening, need for repeat procedure , blood clot and cardiopulmonary demise. Despite these risks, Efrain elected to proceed. Findings: There was significant signs of arthritis throughout the knee. These primarily involve the medial aspect of the knee. Procedure Description: Efrain was greeted in the preoperative holding area where the correct side was identified and marked. The consent was reviewed with the patient and signed. The history and physical was updated. All questions were answered. Preoperative mediacations were administered: Acetaminophen 1000mg, Celebrex 400mg, Gabapentin 300mg, and Oxycontin 10mg. An adductor canal block was then administered by the anesthesia team in the PACU. Efrain was taken back to the operating room. A spinal anesthestic was then administered. The patient was placed into the supine position on the operating room table. A nonsterile tourniquet was placed high onto the leg but only used for cementing. Posts were placed for positioning during the procedure. All bony prominences were well padded. Prophylactic antibiotics in the form of cefazolin were administered. 1g of Tranxemic Acid was given intravenously within 30 minutes of incision. The left leg was then prepped with Chloraprep and draped in a standard fashion with impervious stockinette and extremity drape with Iodine impregnated skin protection. A timeout to confirm correct identity, side and site, procedure, allergies, anesthesia, and medical concerns was performed. With the knee in some flexion, a midline incision was made overlying the knee. Full thickness skin flaps were raised once the extensor mechanism was encountered. These were raised medially and laterally. Any bleeding was controlled with electrocautery. Once the extensor mechanism was fully exposed, a medial parapatellar arthrotomy was performed in a flexed position. All bleeding from the arthrotomy and the geniculate arteries was coagulated. A medial subperiosteal peel was performed with electrocautery to the midcoronal plane. The fat pad was removed while keeping the patellar tendon protected. The anterior distal femur synovium was removed for later visualization. The ACL and PCL were resected and the anterior horn of the lateral meniscus was transected. The knee was then flexed with the patella everted. Large osteophytes from the tibia were removed. Large osteophytes from the femur were removed. Using a step drill, and based on preoperative templating, the femoral canal was entered. This was done with a step drill without any difficulty. The intramedullary distal femoral cut guide was inserted, set to a 5 degree valgus cut and 9mm cut thickness. The distal femoral cut guide was then held in position and pinned. With the soft tissues protected, the distal cut was performed. This was passed over a few times to ensure a planar cut. I then turned attention to the tibia. The extramedullary guide was placed onto the leg. The distal aspect was slid medial to adjust for position of center of ankle and stay in line with shaft of the tibia. Approximately 3-5 degrees of posterior slope was kept in the proximal cutting guide. The center of the guide was aligned with the PCL. The stylus was used to assess cut thickness. The medial side, most involved side, was set for a 4mm cut. This was then held in position and pinned into place with 2 additional pins and a cross pin for stability. The medial and lateral collateral ligaments were protected and the cut was performed. With this completed, it was assessed and noted to be of appropriate dimensions. The guide was removed. A spacer block was inserted and the knee was brought into extension. The 6mm spacer block provided full extension, without hyperextension and with stability of both the medial and lateral collateral ligaments was assessed. The pins from the femur and the tibia were then removed. The distal femur was then sized. The anterior stylus was placed onto the lateral ridge of the anterior femur. This indicated a size 7 femur. The external rotation of the guide was adjusted to 3 degrees to match the epicondylar axis, perpendicular to Reese?s line. The 4-in-1 cutting guide was the placed. The posterior medial femur cut was evaluated and appeared of good thickness. The spacer block was inserted underneath the cutting guide and stability was confirmed in 90 degrees of flexion. An shaka wing was used to confirm appropriate position of the anterior cut to avoid notching. This cutting guide was ensured to be flush on the cut surface and then pinned into place with headed pins. While protecting the soft tissues, quad tendon, and collateral ligaments, the anterior and posterior cuts were performed with a saw. The central two pins were removed and the posterior and anterior chamfers were cut next. The notch-cutting guide was placed. This was pinned to lateralize the femoral component as much as possible while keeping it flush on the cut surface. This was then pinned into position. A reciprocating saw was used to make the notch cut. A rasp smoothed the cut surfaces. A trial posterior stabilized femoral component was then inserted, impacted down to the cut surfaces, and the lug holes were drilled. A provisional trial tibial component was placed and the knee was brought through range of motion. There was noted to be excellent extension and flexion. There was no significant instability. The patella was tracking without thumbs. The tibial cut surface was fully exposed. The medial and lateral menisci were removed. The tibia was then sized as a 5. The tibia had been previously marked during trialing to correspond to the center of the tibial component to help with rotation. The trial was aligned to this kelvin, approximately rotated to the medial 1/3rd of the tibial tubercle. The trial was pinned into place. The tibia was prepared with a reamer and a keel punch. The knee was then brought into extension and the patella was measured as 28 mm. Using the patellar clamp and cut guide, this was resected to a flat surface with at least 13mm of thickness remaining. The size 35mm patella fit the best. This was oriented and then clamped into position. The lugs were drilled. The trial components were removed. The final components, except for the polyethylene were opened on the back table. The periosteal and capsular tissues , especially posteriorly, around the knee were then systematically injected with a periarticular cocktail consisting of 50cc 0.25% Marcaine, 30mg Ketorolac , 20cc of Exparal and 50cc of injectable saline. The tourniquet was then inflated to 275mmHg. The knee was thoroughly irrigated with a pulse lavage and dried. On the back table, with the implants opened, the cement was mixed. 2 batches of antibiotic laden cement were prepared with vacuum assistance. After the cement was ready a small amount was placed on to the back side of the tibial component at the keel. A small amount was placed onto the posterior flange of the femur. Cement was manual pressurized and impregnated into the cut surface of the tibia. The tibial component was then inserted into the cut surface and impacted into position. Excess cement was removed and the component was reimpacted. Again, excess cement was removed and our attention was then turned to the femur. The femoral cut surface was once again dried and cement was manually impacted into the cut surface. The femoral component was lined with the lug holes and impacted. Excess cement was removed. It was ensured to be down against the cut surface. The trial polyethylene was then inserted and the leg was brought out into full extension for the duration of the cement curing process, approximately 15min. Cement was lastly manually impacted into the cut surface of the patella and the patellar button was clamped into position and held. During this process attention was turned to the gutters of the knee and for all interfaces for any excess cement. After the cement had finally cured, approximately 15min, the clamp was removed from the patella and the knee was taken through range of motion. A size 6mm polyethylene component provided the best range of motion and stability with less than 2mm gapping with medial and lateral stress and full extension without significant hyperextension. The patella was tracking with a no-thumbs technique. The trial poly was removed and once again the knee was checked for any loose, excess, or errant cement. The poly component was then inserted and impacted into position after cleaning and drying the tibial tray. The capsule was then reapproximated with a No. 1 Vicryl at multiple locations. The capsule was finally closed with a No. 2 Stratafix, barbed suture. The tourniquet was then released and the arthrotomy appeared watertight without significant bleeding. The second dosing of 1g TXA was started. Deep tissues were then reapproximated with 0 Vicryl and 2-0 Vicryl. The skin was closed with a running 3-0 Monocryl in a subcuticular fashion. This was reinforced with skin glue. A Mepilex silver dressing was applied along with a foot-to- thigh WILLIE wrap. A CryoCuff was applied. Efrain was transferred to the hospital bed without difficulty an suffering no apparent complication. He has a good prognosis. Physical therapy will start today and without restrictions, weight-bearing as tolerated. Aspirin 81mg BID will be used for DVT prophylaxis.
== END 2018-09-07 11:17 | disposition home or self-care (01) | DRG 470 ==
LOC: PDS 09:00 → MS 11:23
PROVIDERS: Admitting Provider Student in an Organized Health Care Education/Training Program; PCP Nurse Practitioner Family; Visit Provider Student in an Organized Health Care Education/Training Program
PROC: 0SRD0J9 Replacement of Left Knee Joint with Synthetic Substitute, Cemented, Open Approach (ICD-10-PCS; CPT 27447; principal; 2018-09-06 08:30)
DX: M17.12 Unilateral primary osteoarthritis, left knee (principal); Z96.652 Presence of left artificial knee joint; Z23 Encounter for immunization; I25.2 Old myocardial infarction; Z95.1 Presence of aortocoronary bypass graft; E11.9 Type 2 diabetes mellitus without complications; G47.33 Obstructive sleep apnea (adult) (pediatric); E66.9 Obesity, unspecified
CPT/HCPCS: 27447; 76942; 97110; 97161; 97530; NC; J0690; J1100; J1885; J2250; J2405; J3010

== ENCOUNTER 2018-09-21 09:25 | Outpatient (CLI) | payer BC, SELFPAY ==
--- NOTE | 2018-09-21 09:17 | DI.RAD_ITS ---
SYMPTOM/DIAGNOSIS: LT TKA LEG LENGTH STUDY: Standing AP view was performed from above the iliac crests through the ankles. There is a left total hip prosthesis. There are degenerative changes of the medial femorotibial joint space of the right knee with varus angulation. The right femoral head and iliac crest project superior to the left. There is an 11 mm. leg length discrepancy at the level of the femoral heads. The ankle joint spaces and hip joint spaces are well maintained. 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 Leg length discrepancy. LEFT KNEE: There is a left total knee prothesis. No abnormal bony lucencies are seen.
== END 2018-09-21 09:45 ==
PROVIDERS: PCP Nurse Practitioner Family; Visit Provider Physician Assistant
DX: Z96.652 Presence of left artificial knee joint (principal); Z47.1 Aftercare following joint replacement surgery; M17.11 Unilateral primary osteoarthritis, right knee
CPT/HCPCS: 73560; 77073

== ENCOUNTER 2018-11-16 10:03 | Day surgery (SDC) | payer BC, SELFPAY ==
[2018-11-16 11:03] VITALS: BP 162/81; PULSE 60; RESP 16; TEMP 36.6; O2SAT 95
[2018-11-16] MEDS: Lactated Ringers 1,000 ML 80 ML IV (11:55)
[2018-11-16] MEDS: Bupivacaine 0.25% Pres-Free 30 ML VIAL (12:23)
[2018-11-16 12:31] VITALS: BP 145/88; PULSE 64; RESP 17; TEMP 36.5; O2SAT 99
[2018-11-16 12:36] VITALS: BP 166/76; PULSE 61; RESP 14; TEMP 36.6; O2SAT 98
[2018-11-16 12:41] VITALS: BP 156/73; PULSE 63; RESP 12; TEMP 36.6; O2SAT 98
--- NOTE | 2018-11-16 12:46 | PDOC.DSDIS_ITS ---
Discharge Plan Disposition Patient Disposition: HOME Condition: Good Discharge Details Reason For Visit: L Knee MARILYN Attending Provider: Mk Hernandez Primary Care Provider: Darlene Chang Home Meds and New Rx's Prescriptions: New celecoxib 200 mg capsule 200 mg PO BID PRN (Reason: pain) Qty: 60 RF: 1 oxycodone 5 mg tablet 5 mg PO Q6H Qty: 6 RF: 0 Continued lisinopril 40 MG tablet 40 mg PO DAILY RF: 0 atorvastatin 80 MG tablet 80 mg PO HS RF: 0 nitroglycerin 0.4 MG tablet, sublingual 0.4 mg Sublingual . DIRECTED PRNRF: 0 furosemide 20 MG tablet 20 mg PO DAILY RF: 0 fluticasone [Flonase Allergy Relief] 9.9 ML spray,suspension 9.9 ml NS PRN PRNRF: 0 metoprolol tartrate 25 MG tablet 50 mg PO TID RF: 0 Zyrtec 10 MG capsule 10 mg PO PRN PRNRF: 0 ascorbic acid (vitamin C) [Vitamin C] 1,000 MG tablet extended release 1,000 mg PO DAILY RF: 0 aspirin [Aspir-81] 81 MG tablet,delayed release (DR/EC) 81 mg PO DAILY RF: 0 trazodone 100 MG tablet 100 mg PO HS RF: 0 Prilosec OTC 20 MG tablet,delayed release (DR/EC) 20 mg PO DAILY RF: 0 One Daily 1 EACH tablet 1 tab PO DAILY RF: 0 loperamide [Anti-Diarrhea] 2 mg Tablet 2 mg PO DAILY RF: 0 acetaminophen [Mapap Extra Strength] 500 mg Tablet 1,000 mg PO TID Qty: 90 RF: 0 polyethylene glycol 3350 17 gram Powder In Packet 17 g PO BID PRN PRN (Reason: Constipation) Qty: 0 RF: 0 gabapentin 300 mg Capsule 300 mg PO HS Qty: 7 RF: 0 Discharge Instructions Additional Instructions: Activity: You should begin moving as soon as possible. You may work on flexion but also equally maintain extension. You may bear weight as tolerated, using crutches only for support/comfort. You should apply ice to help with swelling and elevate when possible (especially in the first few days). Medications: - Rarely does this require any stronger pain medications but a few Oxycodone were called in if needed. - Recommend to take up to 1000mg of Acetaminophen (Tylenol) and 200mg of Celebrex or 600mg of Ibuprofen (Advil) every 8 hours as needed. These larger strength tablets were called in but you also may use [id number]. Follow-up: 7-10 days. You should start physical therapy tomorrow. Referrals: Mk Henrandez MD [ [facility] STAFF PHYSICIAN] - Activity:: Activity as Tolerated Diet:: As Tolerated Discharge Orders Discharge Orders: Discharge Order (Routine); Ordered 11/16/18 Ordered By: Mk Hernandez DS: Diagnosis Discharge Diagnosis (1) Arthrofibrosis of total knee arthroplasty: Status: Acute
--- NOTE | 2018-11-16 12:49 | W.PM.OP ---
Date of service: 11/16/18 Time of Service: 12:50 Operative Note DATE OF PROCEDURE: 11/16/18 PRE-OP DIAGNOSIS: Left knee Arthrofibrosis POST-OP DIAGNOSIS: same PROCEDURE: Left knee Manipulation Under Anesthesia SURGEON: Mk Hernandez ANESTHESIA: GETWilder ESTIMATED BLOOD LOSS: 0 COMPLICATIONS: None Patient was transported to: PACU Patient's condition: stable Indications: Efrain is a 63-year-old male who is s/p knee arthroplasty. Conservative treatment options have been exhausted to improve range of motion, but the motion is still limited, especially in flexion. Due to this I recommended proceeding with manipulation under anesthesia. I reviewed the risks to include bleeding, pain, continued stiffness, fracture. Despite these risks, the patient agreed to proceed. Findings: Premanipulation flexion: 95 Postmanipulation flexion: 130 Procedure Description: Efrain was greeted in the preoperative holding area. His identity was confirmed the correct site was identified and marked. The consent was reviewed the patient and signed. The history and physical was updated. He was taken to the operating room and placed in supine position. No prophylactic antibiotics were necessary. A timeout was performed for safe surgery. A general anesthetic was administered. The knee was then injected with 10 cc of 0.25% bupivacaine after prepping the knee with ChloraPrep. Muscle relaxation was administered and after fasciculations the manipulation was performed. His pre-manipulation flexion was approximately 95 degrees. Gentle pressure was placed over the anterior tibia and gradual flexion was increased. There is notable tearing and distraction of scar tissue felt in the subpatellar region. This was continued until it was felt the flexion was maximized. The knee was brought to range of motion. The knee was stable to range of motion without instability. The patient easily went to 125-130 degrees of flexion after the procedure. The patient was then awakened from anesthesia and taken the PACU in stable condition.
[2018-11-16 13:00] VITALS: BP 160/73; PULSE 60; RESP 9; TEMP 36.6; O2SAT 97
[2018-11-16 13:36] VITALS: BP 164/86; PULSE 61; RESP 16; TEMP 36.3; O2SAT 97
== END 2018-11-16 13:45 | disposition home or self-care (01) ==
PROVIDERS: PCP Nurse Practitioner Family; Visit Provider Student in an Organized Health Care Education/Training Program
PROC: (CPT 27570; principal; 2018-11-16 12:00)
DX: M24.662 Ankylosis, left knee (principal); T84.82XA Fibrosis due to internal orthopedic prosthetic devices, implants and grafts, initial encounter; Z96.652 Presence of left artificial knee joint
CPT/HCPCS: 27570

== ENCOUNTER 2019-02-03 14:31 | Outpatient (CLI) | payer BC, SELFPAY ==
[2019-02-03 14:52] LABS: Absolute Basophil Count 0.03 k/cumm (0.0-0.2); Absolute Eosinophil Count 0.19 k/cumm (0.0-0.7); Absolute Monocyte Count 0.71 k/cumm (0.11-0.7); Absolute Neutrophil Count 3.44 k/cumm (1.2-6.7); Basophils % 0.5; Eosinophils % 3.2; HCT 40.5 % (40.0-50.0); HGB 13.5 g/dL (13.5-17.5); Lymphocytes % 26.8; Mean Corp. HGB Concentration 33.3 g/dL (32.0-36.0); Mean Corpuscular Hemoglobin 28.4 pg (27.0-33.0); Mean Corpuscular Volume 85.3 fL (80-95); Mean Platelet Volume 10.2 fL (8.0-11.0); Monocytes % 11.9; Neutrophils % 57.6; Platelet Count 249 x1000/uL (130-400); RBC 4.75 m/cumm (4.50-6.00); RBC Distribution Width 12.8 % (11.8-14.1); White Blood Cell Count 5.97 k/cumm (4.4-10.8)
[2019-02-03 16:03] LABS: ALT 32 U/L (12-78); AST 21 U/L (15-37); Albumin 3.8 g/dL (3.4-5.0); Alkaline Phosphatase 90 U/L (46-116); Anion Gap 8.5 mmol/L (3-11); BUN 23 mg/dL (7-18); Bilirubin, Total 0.5 mg/dL (0.2-1.0); CO2 29.5 mmol/L (21.0-32.0); CREATININE 0.91 mg/dL (0.70-1.30); Chloride 104 mmol/L (98-107); Glucose 143 mg/dL (70-100); Potassium 3.8 mmol/L (3.5-5.1); Sodium 142 mmol/L (136-145); Total Protein 6.7 g/dL (6.4-8.2)
[2019-02-06 10:37] LABS: CEA 1.4 ng/ml
== END 2019-02-03 14:51 ==
PROVIDERS: PCP Nurse Practitioner Family; Visit Provider Internal Medicine Hematology & Oncology
DX: C20 Malignant neoplasm of rectum (principal)
CPT/HCPCS: 36415; 80053; 82378; 85025

== ENCOUNTER 2019-09-08 09:34 | Outpatient (CLI) | payer BC, SELFPAY ==
--- NOTE | 2019-09-08 09:08 | DI.RAD_ITS ---
EXAM: XR KNEE LT 2V AP,LAT INDICATION: ANNUAL F/U. COMPARISON: XR knee LT 1V from 09/21/2018 TECHNIQUE: 2D digital imaging was performed. FINDINGS: There are stable postsurgical changes of a left total knee replacement. No evidence of hardware fail ure is present. The bones are intact. Atherosclerosis. The soft tissues are unremarkable. IMPRESSION: Stable left TKR.
== END 2019-09-08 09:54 ==
PROVIDERS: PCP Nurse Practitioner Family; Visit Provider Student in an Organized Health Care Education/Training Program
DX: Z96.652 Presence of left artificial knee joint (principal); Z47.1 Aftercare following joint replacement surgery
CPT/HCPCS: 73560

== ENCOUNTER 2019-10-10 15:04 | Outpatient (CLI) | payer BC, SELFPAY ==
[2019-10-10 15:20] LABS: Abs Immature Grans 0.02 k/cumm (0.0-0.09); Absolute Basophil Count 0.03 k/cumm (0.0-0.2); Absolute Eosinophil Count 0.21 k/cumm (0.0-0.7); Absolute Lymphocyte Count 1.74 k/cumm (1.2-3.4); Absolute Monocyte Count 0.74 k/cumm (0.11-0.7); Absolute Neutrophil Count 3.93 k/cumm (1.2-6.7); Basophils % 0.4; Eosinophils % 3.1; HCT 41.1 % (40.0-50.0); HGB 13.8 g/dL (13.5-17.5); Immature Grans % 0.3; Lymphocytes % 26.1; Mean Corp. HGB Concentration 33.6 g/dL (32.0-36.0); Mean Corpuscular Hemoglobin 28.7 pg (27.0-33.0); Mean Corpuscular Volume 85.4 fL (80-95); Mean Platelet Volume 10.2 fL (8.0-11.0); Monocytes % 11.1; Platelet Count 229 x1000/uL (130-400); RBC 4.81 m/cumm (4.50-6.00); RBC Distribution Width 12.3 % (11.8-14.1); White Blood Cell Count 6.67 k/cumm (4.4-10.8)
[2019-10-10 16:08] LABS: ALT 31 U/L (16-63); AST 17 U/L (15-37); Albumin 3.8 g/dL (3.4-5.0); Alkaline Phosphatase 80 U/L (46-116); BUN 20 mg/dL (7-18); Bilirubin, Total 0.4 mg/dL (0.2-1.0); CREATININE 1.05 mg/dL (0.70-1.30); Calcium 8.1 mg/dL (8.5-10.1); Chloride 106 mmol/L (98-107); Glucose 158 mg/dL (74-106); Potassium 3.7 mmol/L (3.5-5.1); Sodium 144 mmol/L (136-145); Total Protein 6.9 g/dL (6.4-8.2)
[2019-10-12 09:35] LABS: CEA 0.9 ng/mL (See Note)
== END 2019-10-10 15:24 ==
PROVIDERS: PCP Nurse Practitioner Family; Visit Provider Internal Medicine Hematology & Oncology
DX: C20 Malignant neoplasm of rectum (principal)
CPT/HCPCS: 36415; 80053; 82378; 85025

== ENCOUNTER 2020-07-26 16:48 | Outpatient (REF) | payer BC, SELFPAY ==
[2020-07-26 20:08] LABS: ALT 37 U/L (16-63); AST 21 U/L (15-37); Albumin 3.8 g/dL (3.4-5.0); Alkaline Phosphatase 77 U/L (46-116); Anion Gap 7.5 mmol/L (3-11); BUN 22 mg/dL (7-18); Bilirubin, Total 0.6 mg/dL (0.2-1.0); C-Reactive Protein 0.11 mg/dL (0.0-0.3); CO2 28.5 mmol/L (21.0-32.0); CREATININE 1.19 mg/dL (0.70-1.30); Calcium 8.5 mg/dL (8.5-10.1); Chloride 105 mmol/L (98-107); Glucose 117 mg/dL (74-106); Potassium 3.9 mmol/L (3.5-5.1); Sodium 141 mmol/L (136-145); Total Protein 6.7 g/dL (6.4-8.2); Uric Acid 5.4 mg/dL (3.5-7.2)
[2020-07-29 10:00] LABS: CEA 1.6 ng/mL (See Note)
== END 2020-07-26 17:08 ==
LOC: NCHCN 16:48
PROVIDERS: PCP Nurse Practitioner Family; Visit Provider Nurse Practitioner Family
DX: C20 Malignant neoplasm of rectum (principal); M79.89 Other specified soft tissue disorders
CPT/HCPCS: 80053; 82378; 84550; 86140

== ENCOUNTER 2020-08-02 10:47 | Outpatient (CLI) | payer BC, SELFPAY ==
--- NOTE | 2020-08-02 15:36 | DI.RAD_ITS ---
EXAM: XR HAND LT COMPLETE CLINICAL HISTORY: SWELLING OF LT FINGER M79.89 TECHNIQUE: COMPARISON: No exams were available for comparison FINDINGS: Three views were obtained. There are degenerative changes predominantly involving the IP joints the hand also involving 2nd 3rd MCP joints and the greater multangular 1st metacarpal joint. There is no evidence of fracture. No dislocation seen. IMPRESSION: RADIATION DOSE DELIVERED: Total DLP
== END 2020-08-02 11:07 ==
PROVIDERS: PCP Nurse Practitioner Family; Visit Provider Nurse Practitioner Family
DX: M19.042 Primary osteoarthritis, left hand (principal); M79.89 Other specified soft tissue disorders
CPT/HCPCS: 73130

== ENCOUNTER 2020-12-23 19:06 | Outpatient (REF) | payer BC, SELFPAY ==
[2020-12-23 16:13] LABS: Anion Gap 9.2 mmol/L (3-11); BUN 23 mg/dL (7-18); CO2 26.8 mmol/L (21.0-32.0); CREATININE 0.9 mg/dL (0.70-1.30); Calcium 8.2 mg/dL (8.5-10.1); Chloride 105 mmol/L (98-107); Glucose 165 mg/dL (74-106); Potassium 3.6 mmol/L (3.5-5.1); Sodium 141 mmol/L (136-145)
[2020-12-24 11:49] LABS: Hepatitis C Ab w Rflx HCV PCR Negative (Negative)
[2020-12-24 12:41] LABS: HIV-1/2 Ag & Ab Screen Negative (Negative)
== END 2020-12-23 19:07 | disposition home or self-care (01) ==
LOC: NCHCN 19:06
PROVIDERS: PCP Nurse Practitioner Family; Visit Provider Nurse Practitioner Family
DX: I10 Essential (primary) hypertension (principal); Z11.59 Encounter for screening for other viral diseases; Z01.818 Encounter for other preprocedural examination; Z11.4 Encounter for screening for human immunodeficiency virus [HIV]
CPT/HCPCS: 80048; 86803; 87389

== ENCOUNTER 2021-02-10 09:17 | Outpatient (CLI) | payer BC, SELFPAY ==
--- NOTE | 2021-02-10 07:45 | DI.RAD_ITS ---
EXAM: XR KNEE LT 2V AP,LAT CLINICAL HISTORY: annual f/u L TKA. TECHNIQUE: 2D digital imaging was performed. COMPARISON: CR XR KNEE LT 2V AP,LAT from 09/08/2019 FINDINGS: There is stable position alignment of the components of the prosthesis. No fractures evident. There is subtle lucency seen subjacent to the tibial component on the lateral view. Also subtle lucency a t the bone-cement interface in the distal femur seen on the lateral view. Correlation any clinical signs of loosening is recommended. IMPRESSION: DATA REPOSITORY: RADIATION DOSE DELIVERED:
== END 2021-02-10 09:18 | disposition home or self-care (01) ==
LOC: DIORS 09:17
PROVIDERS: PCP Nurse Practitioner Family; Referring Provider Nurse Practitioner Family; Visit Provider Student in an Organized Health Care Education/Training Program
DX: Z96.652 Presence of left artificial knee joint (principal); Z47.1 Aftercare following joint replacement surgery
CPT/HCPCS: 73560

== ENCOUNTER 2021-04-22 10:42 | Outpatient (REF) | payer BC, SELFPAY ==
[2021-04-22 14:07] LABS: Abs Immature Grans 0.03 10^3/uL (0.0-0.06); Absolute Basophil Count 0.03 10^3/uL (0.0-0.2); Absolute Eosinophil Count 0.14 10^3/uL (0.0-0.7); Absolute Lymphocyte Count 1.12 10^3/uL (1.2-3.4); Absolute Monocyte Count 1.27 10^3/uL (0.1-0.8); Absolute Neutrophil Count 3.01 10^3/uL (1.2-6.7); Basophils % 0.5; Eosinophils % 2.5; HGB 13.1 g/dL (13.5-17.5); Immature Grans % 0.5; MCH 28.3 pg (27.0-33.0); MCHC 33.6 % (32.0-36.0); MCV 84.2 fL (80-95); MPV 10.9 fL (8.0-11.0); Monocytes % 22.7; Neutrophils % 53.8; Nucleated RBC 0 %; Platelet Count 217 10^3/uL (130-400); RBC 4.63 10^6/uL (4.36-5.78); RDW 12.5 % (11.8-14.1); RDW-SD 38.2 fL
[2021-04-22 14:08] LABS: ALT 219 U/L (16-63); AST 147 U/L (15-37); Albumin 3.2 g/dL (3.4-5.0); Alkaline Phosphatase 186 U/L (46-116); Anion Gap 9.4 mmol/L (3-11); BUN 13 mg/dL (7-18); Bilirubin, Total 1.2 mg/dL (0.2-1.0); CO2 28.6 mmol/L (21.0-32.0); CREATININE 0.9 mg/dL (0.70-1.30); Calcium 8.3 mg/dL (8.5-10.1); Chloride 105 mmol/L (98-107); Glucose 105 mg/dL (74-106); Potassium 3.6 mmol/L (3.5-5.1); Sodium 143 mmol/L (136-145); Total Protein 6.4 g/dL (6.4-8.2)
[2021-04-24 13:51] LABS: COVID-19 RT-PCR UVMMC Result Negative (Negative)
== END 2021-04-22 10:43 | disposition home or self-care (01) ==
LOC: NCHCN 10:42
PROVIDERS: PCP Nurse Practitioner Family; Visit Provider Nurse Practitioner Family
DX: R11.2 Nausea with vomiting, unspecified (principal); J06.9 Acute upper respiratory infection, unspecified; Z20.822 Contact with and (suspected) exposure to COVID-19
CPT/HCPCS: 80053; U0003; 85025

== ENCOUNTER 2021-06-20 15:32 | Outpatient (REF) | payer BC, SELFPAY ==
[2021-06-20 21:20] LABS: Hemoglobin A1C 5.8 % (<5.7)
[2021-06-20 21:26] LABS: ALT 28 U/L (16-63); AST 23 U/L (15-37); Albumin 4.2 g/dL (3.4-5.0); Alkaline Phosphatase 88 U/L (46-116); Anion Gap 10.2 mmol/L (3-11); BUN 23 mg/dL (7-18); Bilirubin, Total 0.6 mg/dL (0.2-1.0); CO2 28.8 mmol/L (21.0-32.0); Calcium 8.9 mg/dL (8.5-10.1); Chloride 106 mmol/L (98-107); Glucose 108 mg/dL (74-106); Potassium 4.2 mmol/L (3.5-5.1); Sodium 145 mmol/L (136-145)
== END 2021-06-20 15:33 | disposition home or self-care (01) ==
LOC: NCHCN 15:32
PROVIDERS: PCP Nurse Practitioner Family; Visit Provider Physician Assistant
DX: K75.9 Inflammatory liver disease, unspecified (principal); R73.03 Prediabetes
CPT/HCPCS: 80053; 83036

== ENCOUNTER 2022-02-09 08:30 | Outpatient (CLI) | payer BC, SELFPAY ==
--- NOTE | 2022-02-09 07:45 | DI.RAD_ITS ---
Exam(s) XR KNEE LT 2V AP,LAT EXAM: XR KNEE LT 2V AP,LAT INDICATION: L TKA. COMPARISON: CR XR KNEE LT 2V AP,LAT from 02/10/2021 TECHNIQUE: 2D digital imaging was performed. Two views. FINDINGS: total knee prosthesis, unchanged in alignment. Small stable areas of lucency adjacent to the tibial component and distal femur. Small joint effusion. No new findings. DATA REPOSITORY: RADIATION DOSE DELIVERED:
== END 2022-02-09 08:31 | disposition home or self-care (01) ==
LOC: DIORS 08:30
PROVIDERS: PCP Nurse Practitioner Family; Referring Provider Nurse Practitioner Family; Visit Provider Physician Assistant
DX: M25.562 Pain in left knee (principal); T84.82XA Fibrosis due to internal orthopedic prosthetic devices, implants and grafts, initial encounter; Z96.652 Presence of left artificial knee joint
CPT/HCPCS: 73560

== ENCOUNTER 2022-03-13 19:52 | Outpatient (REF) | payer BC, SELFPAY ==
[2022-03-13 16:18] LABS: Hemoglobin A1C 6.2 % (<5.7)
[2022-03-13 17:07] LABS: ALT 33 U/L (16-63); Albumin 3.8 g/dL (3.4-5.0); Alkaline Phosphatase 91 U/L (46-116); BUN 22 mg/dL (7-18); Bilirubin, Total 0.5 mg/dL (0.2-1.0); Calcium 8.4 mg/dL (8.5-10.1); Calculated LDL 84 mg/dL (<100); Chloride 107 mmol/L (98-107); Cholesterol 155 mg/dL (<200); Glucose 107 mg/dL (74-106); HDL Cholesterol 43 mg/dL (40-60); Potassium 4.2 mmol/L (3.5-5.1); Sodium 145 mmol/L (136-145); Total Protein 6.9 g/dL (6.4-8.2); Triglyceride 141 mg/dL (<150)
[2022-03-13 18:05] LABS: AST 21 U/L (15-37)
[2022-03-13 22:49] LABS: PSA, Screening 0.2 ng/mL (<=4.5)
== END 2022-03-13 19:53 | disposition home or self-care (01) ==
LOC: NCHCN 19:52
PROVIDERS: PCP Nurse Practitioner Family; Visit Provider Physician Assistant
DX: R73.03 Prediabetes (principal); I10 Essential (primary) hypertension; E78.5 Hyperlipidemia, unspecified; Z12.5 Encounter for screening for malignant neoplasm of prostate
CPT/HCPCS: 80053; 80061; 84153; 83036

== ENCOUNTER 2022-11-23 17:07 | Outpatient (REF) | payer OTHER, SELFPAY ==
--- NOTE | 2022-11-23 16:50 | SKI_PTH ---
PATIENT: Efrain Allison LOC: NCN #:[id number] AGE/SX: 67/M ROOM: RE11/23/[address]: Edgard Muir : 1955 BED: DIS: 11/23/2022 SPEC #: [id number] RECD: 11/23/22 18:45 STATUS: WALTER REQ #: [id number] KUNAL: 11/23/22 16:[address]: Edgard Muir DEPT: Surgical Specimen RECD BY: Sheree Looney ENTERED: 11/23/22 18:47 SP TYPE: RENETTA SAMUELS DR: Darlene Chang Tissues: 1 - SKIN BIOPSY(SHAVE/PUNCH) Procedures: SKIN LEVEL 4 Comments: [id number]
== END 2022-11-23 17:08 | disposition home or self-care (01) ==
LOC: NCHCN 17:07
PROVIDERS: PCP Nurse Practitioner Family; Visit Provider Physician Assistant
DX: D04.39 Carcinoma in situ of skin of other parts of face (principal)
CPT/HCPCS: 88305

== ENCOUNTER → 2022-12-28 11:16 | Outpatient (BNVA) | payer OTHER, SELFPAY | PROVIDERS: PCP Nurse Practitioner Family; Referring Provider Nurse Practitioner Family; Visit Provider Surgery | DX: L98.9 Disorder of the skin and subcutaneous tissue, unspecified (principal); C44.320 Squamous cell carcinoma of skin of unspecified parts of face; E11.9 Type 2 diabetes mellitus without complications; L57.0 Actinic keratosis; Z95.1 Presence of aortocoronary bypass graft; Z95.5 Presence of coronary angioplasty implant and graft | CPT/HCPCS: 99214; 99243 ==

== ENCOUNTER → 2023-01-11 13:32 | Outpatient (BNVA) | payer OTHER, SELFPAY | PROVIDERS: PCP Physician Assistant; Referring Provider Physician Assistant; Visit Provider Surgery | DX: C44.91 Basal cell carcinoma of skin, unspecified (principal); C44.320 Squamous cell carcinoma of skin of unspecified parts of face; L82.1 Other seborrheic keratosis; L57.0 Actinic keratosis | CPT/HCPCS: 11441; 11442; 11602; 11641 ==

== ENCOUNTER 2023-01-11 15:07 | Outpatient (REF) | payer OTHER, SELFPAY ==
--- NOTE | 2023-01-11 14:35 | SKI_PTH ---
PATIENT: Efrain Allison LOC: [facility] U#:[id number] AGE/SX: 67/M ROOM: RE01/11/[address]: Maria A Acosta : 1955 BED: DIS: 01/11/2023 SPEC #: [id number] RECD: 01/11/23 17:12 STATUS: WALTER REQ #: [id number] KUNAL: 01/11/23 14:[address]: Maria A Acosta DEPT: Surgical Specimen RECD BY: Sheree Looney ENTERED: 01/11/23 17:13 SP TYPE: RENETTA SAMUELS DR: Edgard Muir Tissues: 1 - SKIN BIOPSY(SHAVE/PUNCH) 2 - SKIN BIOPSY(SHAVE/PUNCH) 3 - SKIN BIOPSY(SHAVE/PUNCH) 4 - SKIN BIOPSY(SHAVE/PUNCH) 5 - SKIN BIOPSY(SHAVE/PUNCH) Procedures: SKIN LEVEL 4 Comments: [id number]
== END 2023-01-11 15:08 | disposition home or self-care (01) ==
LOC: LBN 15:07
PROVIDERS: PCP Physician Assistant; Visit Provider Surgery
DX: C44.329 Squamous cell carcinoma of skin of other parts of face (principal); L82.1 Other seborrheic keratosis; L57.0 Actinic keratosis; C44.519 Basal cell carcinoma of skin of other part of trunk
CPT/HCPCS: 88305

== ENCOUNTER → 2023-01-21 14:12 | Outpatient (BNVA) | payer OTHER, SELFPAY | PROVIDERS: PCP Physician Assistant; Referring Provider Physician Assistant; Visit Provider Surgery | DX: L57.0 Actinic keratosis (principal); L57.8 Other skin changes due to chronic exposure to nonionizing radiation; L82.1 Other seborrheic keratosis; C44.320 Squamous cell carcinoma of skin of unspecified parts of face; Z48.817 Encounter for surgical aftercare following surgery on the skin and subcutaneous tissue ==

== ENCOUNTER → 2023-01-28 13:41 | Outpatient (BNVA) | payer OTHER, SELFPAY | PROVIDERS: PCP Physician Assistant; Referring Provider Physician Assistant; Visit Provider Surgery | DX: C44.92 Squamous cell carcinoma of skin, unspecified (principal); C44.320 Squamous cell carcinoma of skin of unspecified parts of face; L82.1 Other seborrheic keratosis; L57.0 Actinic keratosis | CPT/HCPCS: 99212 ==

== ENCOUNTER → 2023-02-11 13:38 | Outpatient (BNVA) | payer OTHER, SELFPAY | PROVIDERS: PCP Physician Assistant; Referring Provider Physician Assistant; Visit Provider Surgery | DX: L57.0 Actinic keratosis (principal); L57.8 Other skin changes due to chronic exposure to nonionizing radiation; L82.1 Other seborrheic keratosis; C44.92 Squamous cell carcinoma of skin, unspecified | CPT/HCPCS: 99212; 99213 ==

== ENCOUNTER → 2023-02-18 13:45 | Outpatient (BNVA) | payer OTHER, SELFPAY | PROVIDERS: PCP Physician Assistant; Referring Provider Physician Assistant; Visit Provider Surgery | DX: L57.0 Actinic keratosis (principal); L57.8 Other skin changes due to chronic exposure to nonionizing radiation; L82.1 Other seborrheic keratosis; C44.92 Squamous cell carcinoma of skin, unspecified; C44.320 Squamous cell carcinoma of skin of unspecified parts of face | CPT/HCPCS: 99212; 99213 ==

== ENCOUNTER 2023-03-23 17:00 | Outpatient (REF) | payer OTHER, SELFPAY ==
[2023-03-23 18:27] LABS: HCT 39.1 % (40.0-50.0); HGB 13.2 g/dL (13.5-17.5); MCH 29.6 pg (27.0-33.0); MCHC 33.8 % (32.0-36.0); MCV 88 fL (80-95); Platelet Count 241 10^3/uL (130-400); RBC 4.46 10^6/uL (4.36-5.78); RDW 12.2 % (11.8-14.1); RDW-SD 39.1 fL; WBC 7.15 10^3/uL (4.4-10.8)
[2023-03-23 18:47] LABS: ALT 35 U/L (16-63); AST 19 U/L (15-37); Albumin 3.8 g/dL (3.4-5.0); Alkaline Phosphatase 71 U/L (46-116); Anion Gap 6.1 mmol/L (3-11); BUN 26 mg/dL (7-18); Bilirubin, Total 0.4 mg/dL (0.2-1.0); CO2 28.9 mmol/L (21.0-32.0); CREATININE 1.1 mg/dL (0.70-1.30); Calcium 8.8 mg/dL (8.5-10.1); Calculated LDL 80 mg/dL (<100); Chloride 106 mmol/L (98-107); Cholesterol 157 mg/dL (<200); Glucose 103 mg/dL (74-106); HDL Cholesterol 47 mg/dL (40-60); Potassium 4.1 mmol/L (3.5-5.1); Sodium 141 mmol/L (136-145); Total Protein 7.1 g/dL (6.4-8.2); Triglyceride 152 mg/dL (<150)
[2023-03-23 19:00] LABS: Hemoglobin A1C 5.9 % (<5.7)
[2023-03-24 18:28] LABS: PSA, Screening 0.2 ng/mL (<=4.5)
== END 2023-03-23 17:01 | disposition home or self-care (01) ==
LOC: NCHCN 17:00
PROVIDERS: PCP Physician Assistant; Visit Provider Physician Assistant
DX: I10 Essential (primary) hypertension (principal); R73.03 Prediabetes; Z12.5 Encounter for screening for malignant neoplasm of prostate; E78.5 Hyperlipidemia, unspecified
CPT/HCPCS: 80053; 80061; 84153; 85027; 83036

== ENCOUNTER 2023-04-05 02:40 | Outpatient (CLI) | payer OTHER, SELFPAY ==
--- NOTE | 2023-04-05 | DI.US_ITS ---
Exam(s) US THYROID EXAM: US THYROID CLINICAL HISTORY: RT THYROID NODULE, E04.1, SURVEILLANCE THYROID NODULE. TECHNIQUE: Ultrasound thyroid performed using standard protocol. COMPARISON: US US THYROID from 12/03/2021 FINDINGS: RIGHT THYROID LOBE: Measures 2.3 cm AP x 2.1 cm wide x 5 cm craniocaudal Right lobe contains 2 solid nodules. The more important solid nodule is discussed 1st. It is the mo re superior of the 2 nodules in right lobe. Characteristics this nodule are as follows: Nodule size: Measures 2.2 x 2.0 x 1.8 cm Composition: Predominately solid-2 points Echogenicity: Isoechoic-1 point Shape: Slightly taller than wider in the transverse plane-3 points Margin: Lobulated-2 points Echogenic Foci: None-0 points Total Points for this nodule: 8 ACR Ti-Rads Category: TR5 This solid nodule requires ultrasound guided FNA. The 2nd solid nodule in the right lobe is just below the above described nodule and exhibits characte ristics as follows: Nodule size: Measures 1.6 x 1.3 x 1.4 cm Composition: Predominately solid-2 points Echogenicity: Isoechoic-1 point Shape: Wider than taller in the transverse plane-0 points Margin: Smooth-0 points Echogenic Foci: None-0 points Total points for this nodule: 3 ACR Ti-Rads Category: TR3 This nodule can be followed conservatively. ISTHMUS: No significant independent nodules in the isthmus. LEFT THYROID LOBE: Measures 1.6 cm AP x 1.7 wide x 4.1 cm craniocaudal The left lobe contains a few sub cm non concerning cysts and nodules which do not require TiRads clas sification. LYMPH NODES: There is no significant adenopathy. IMPRESSION: 1. The more superior of the 2 solid nodules in the right thyroid lobe now exhibits TR5 classification as described above. Ultrasound-guided FNA recommended. 2. Other findings as above can be followed conservatively. 3. There is no significant lymphadenopathy. DATA REPOSITORY:
== END 2023-04-05 03:00 ==
LOC: DI 02:41
PROVIDERS: PCP Physician Assistant; Visit Provider Physician Assistant
DX: E04.1 Nontoxic single thyroid nodule (principal)
CPT/HCPCS: 76536

== ENCOUNTER 2023-04-05 11:06 | Outpatient (CLI) | payer OTHER, SELFPAY ==
--- NOTE | 2023-04-05 10:00 | DI.RAD_ITS ---
Exam(s) XR KNEE LT 2V AP,LAT EXAM: XR KNEE LT 2V AP,LAT CLINICAL HISTORY: ANNUAL F/U L TKA. TECHNIQUE: 2D digital imaging was performed. COMPARISON: CR XR KNEE LT 2V AP,LAT from 02/09/2022 FINDINGS: Two views Prosthesis components appear unchanged. Small stable subtle areas of lucency subjacent to the tibial component again noted, unchanged. IMPRESSION: Stable appearance. DATA REPOSITORY: RADIATION DOSE DELIVERED:
== END 2023-04-05 11:07 | disposition home or self-care (01) ==
LOC: DIORS 11:06
PROVIDERS: PCP Physician Assistant; Referring Provider Physician Assistant; Visit Provider Student in an Organized Health Care Education/Training Program
DX: Z96.652 Presence of left artificial knee joint (principal); Z47.1 Aftercare following joint replacement surgery; T84.82XA Fibrosis due to internal orthopedic prosthetic devices, implants and grafts, initial encounter
CPT/HCPCS: 99213; 73560

== ENCOUNTER 2023-07-21 16:51 | Outpatient (REF) | payer OTHER, SELFPAY ==
[2023-07-21 20:58] LABS: FREE T4 1.09 ng/dL (0.76-1.46); TSH 1.06 uIU/mL (0.36-3.74)
[2023-07-21 21:43] LABS: Hemoglobin A1C 6.1 % (<5.7)
== END 2023-07-21 16:52 | disposition home or self-care (01) ==
LOC: NCHCN 16:51
PROVIDERS: PCP Physician Assistant; Visit Provider Physician Assistant
DX: R73.03 Prediabetes (principal); E04.1 Nontoxic single thyroid nodule
CPT/HCPCS: 83036; 84439; 84443

== ENCOUNTER → 2023-08-19 13:39 | Outpatient (BNVA) | payer OTHER, SELFPAY | PROVIDERS: PCP Physician Assistant; Referring Provider Physician Assistant; Visit Provider Surgery | DX: L57.0 Actinic keratosis (principal); L57.8 Other skin changes due to chronic exposure to nonionizing radiation; L82.1 Other seborrheic keratosis; Z85.828 Personal history of other malignant neoplasm of skin | CPT/HCPCS: 17110 ==

== ENCOUNTER 2023-12-15 15:00 | Outpatient (REF) | payer OTHER, SELFPAY ==
[2023-12-15 19:54] LABS: Hemoglobin A1C 6.1 % (<5.7)
[2023-12-15 19:58] LABS: ALT 37 U/L (16-63); AST 18 U/L (15-37); Alkaline Phosphatase 71 U/L (46-116); Anion Gap 10.7 mmol/L (3-11); BUN 35 mg/dL (7-18); Bilirubin, Total 0.5 mg/dL (0.2-1.0); CO2 28.3 mmol/L (21.0-32.0); CREATININE 1.4 mg/dL (0.70-1.30); Calcium 8.8 mg/dL (8.5-10.1); Calculated LDL 78 mg/dL (<100); Chloride 101 mmol/L (98-107); Cholesterol 172 mg/dL (<200); Estimated GFR 55.43 (mL/min/1.73m2); Glucose 131 mg/dL (74-106); HDL Cholesterol 48 mg/dL (40-60); Potassium 3.9 mmol/L (3.5-5.1); Sodium 140 mmol/L (136-145); Total Protein 7.5 g/dL (6.4-8.2); Triglyceride 230 mg/dL (<150)
[2023-12-16 18:57] LABS: PSA, Screening 0.2 ng/mL (<=4.5)
== END 2023-12-15 15:01 | disposition home or self-care (01) ==
LOC: NCHCN 15:00
PROVIDERS: PCP Physician Assistant; Visit Provider Physician Assistant
DX: E78.5 Hyperlipidemia, unspecified (principal); R73.03 Prediabetes; Z12.5 Encounter for screening for malignant neoplasm of prostate
CPT/HCPCS: 80053; 80061; 84153; 83036